=== PATIENT | male | born 1975 | race Caucasian/White ===

== ENCOUNTER 2017-12-19 18:13 | Emergency (ER) | payer OTHER, BC ==
[~2017-12-19] VITALS: Ht 182.9 cm; Wt 124.0 kg
[2017-12-19] MEDS ORDERED: FLEXERIL10 MG PO (20:24)
[2017-12-19] MEDS ORDERED: ULTRAM50 MG PO (20:24)
[2017-12-19 20:49] VITALS: BP 148/100
== END 2017-12-19 20:51 | disposition home or self-care (01) ==
LOC: EME 18:13
DX: S20.229A Contusion of unspecified back wall of thorax, initial encounter (principal); M54.2 Cervicalgia; M51.36 Other intervertebral disc degeneration, lumbar region; V49.40XA Driver injured in collision with unspecified motor vehicles in traffic accident, initial encounter; Y92.410 Unspecified street and highway as the place of occurrence of the external cause; F17.200 Nicotine dependence, unspecified, uncomplicated
CPT/HCPCS: 72040; 72070; 72100; 99281; 99283